=== PATIENT | male | born 1990 | race African-American/Black ===

== ENCOUNTER 2020-01-02 06:46 | Emergency (ER) | payer OTHER ==
[~2020-01-02] VITALS: Ht 180.3 cm; Wt 112.5 kg
[2020-01-02] MEDS ORDERED: EXCEDRIN CAPLE1 EACH PO (06:54)
[2020-01-02] MEDS ORDERED: DOXYCYCLINE 10100 MG PO (09:03)
[2020-01-02 09:50] VITALS: BP 127/97
== END 2020-01-02 09:55 | disposition home or self-care (01) ==
LOC: ER 06:46
DX: L02.213 Cutaneous abscess of chest wall (principal); Z79.82 Long term (current) use of aspirin